=== PATIENT | female | born 1980 | race Caucasian/White ===

== ENCOUNTER 2019-02-17 12:41 | Emergency (ER) | payer OTHER ==
[2019-02-17 12:47] VITALS: BP 119/68
--- NOTE | 2019-02-17 17:35 | ED ---
Throat Pain/Nasal Congestion - HPI Summary HPI Summary: Patient is a 38-year-old female who returns for second time in 2 days with right -sided jaw pain and swelling. She states since yesterday, the pain has decreased the swelling has only slightly decreased. She was placed on clindamycin yesterday. Dental extraction 3 days ago. She was not able to call her dentist as it has been a weekend. She denies any subjective fevers, sweats , chills. She states she feels the pain control and clindamycin have been improving her symptoms. She arrives today to the ED due to some bruising over the right cheek where there is swelling. She was concerned for "bleeding into the cheek." She denies any other symptoms. She is sleeping better. No drainage from the dental extraction. No pain from the dental extraction. - History of Current Complaint Chief Complaint: EDFever Time Seen by Provider: 02/17/19 12:56 Hx Obtained From: Patient Onset/Duration: Sudden Onset Severity: Moderate Associated Signs And Symptoms: Positive: Negative. Negative: Dysphagia, Drooling, Wheezing, Hoarseness, Sinus Discomfort, Nasal Discharge - Epiglottits Risk Factors Epiglottis Risk Factors: Negative - Allergies/Home Medications Allergies/Adverse Reactions: Allergies Allergy/AdvReac Type Severity Reaction Status Date / Time No Known Allergies Allergy Verified 02/16/19 09:29 PMH/Surg Hx/FS Hx/Imm Hx Previously Healthy: Yes - Immunization History Hx Pertussis Vaccination: No Immunizations Up to Date: Yes Infectious Disease History: No Infectious Disease History: Denies: Traveled Outside the [place] in Last 30 Days - Social History Occupation: Employed Full-time Lives: With Family Alcohol Use: Occasionally Hx Substance Use: No Substance Use Type: Reports: None Smoking Status (MU): Former Smoker Review of Systems Constitutional: Negative Negative: Fever, Chills, Fatigue, Skin Diaphoresis Positive: Dental Pain - right sided over dental extraction area. Negative: Sore Throat, Ear Ache Negative: Palpitations, Chest Pain Negative: Shortness Of Breath, Cough Genitourinary: Negative Positive: no symptoms reported, see HPI Negative: Arthralgia, Myalgia Positive: Bruising - R cheek Negative: Headache All Other Systems Reviewed And Are Negative: Yes Physical Exam Triage Information Reviewed: Yes Vital Signs On Initial Exam: Initial Vitals Temp Pulse Resp BP Pulse Ox 100.2 F 99 18 119/68 96 02/17/19 12:43 02/17/19 12:43 02/17/19 12:43 02/17/19 12:43 02/17/19 12:43 Vital Signs Reviewed: Yes Appearance: Positive: Well-Appearing, Well-Nourished Skin: Positive: Warm, Skin Color Reflects Adequate Perfusion, Other - right cheek bruising Eyes: Positive: EOMI, ANA, Conjunctiva Clear Dental: Positive: Other - s/p extraction #31 Neck: Positive: Supple, No Lymphadenopathy Respiratory/Lung Sounds: Positive: Clear to Auscultation, Breath Sounds Present Cardiovascular: Positive: RRR, Pulses are Symmetrical in both Upper and Lower Extremities Musculoskeletal: Positive: Strength/ROM Intact Neurological: Positive: Speech Normal Psychiatric: Positive: Affect/Mood Appropriate Diagnostics - Vital Signs Vital Signs Temp Pulse Resp BP Pulse Ox 02/17/19 13:13 100.2 F 99 18 119/68 96 02/17/19 12:43 100.2 F 99 18 119/68 96 - Laboratory Lab Statement: Any lab studies that have been ordered have been reviewed, and results considered in the medical decision making process. EENT Course/Dx - Course Course Of Treatment: During the course of treatment, the patient is evaluated for some bruising to the right cheek. She was seen here yesterday and placed on clindamycin and pain control for a recent dental extraction. CT obtained at that time which showed no evidence of loculated fluid collection needed for drainage. She was placed on clinic mycin due to swelling of the right cheek, however this may be only related with trauma and not infection. She was noted to have a temperature on arrival at 100.2. She denies any sweats or chills. She states she is feeling improved since yesterday, but returns today due to some bruising to the right cheek. On physical evaluation, there is slightly less swelling then yesterday, no other signs of infection, no erythema or drainage. There is a small amount of bruising to the right cheek, most likely due to the trauma of the dental extraction. No cervical lymphadenopathy. Patient does endorse some right sided neck pain which was not there yesterday, however there is no noted swelling or enlarged nodes to this area. She is able to rotate about the neck and flex and extend without discomfort. She appears well, no sweats and chills. Lungs CTA. RRR. Denies dysphagia or odynophagia. Patient is reassured at this time and will be discharged home with very close follow-up to her dentist. She understands if symptoms continue to worsen or fail to improve she will return to the ED. - Diagnoses Provider Diagnoses: S/P tooth extraction Discharge - Sign-Out/Discharge Documenting (check all that apply): Patient Departure Patient Received Moderate/Deep Sedation with Procedure: No - Discharge Plan Condition: Stable Disposition: HOME Referrals: No Primary Care Phys,NOPCP [Primary Care Provider] - Additional Instructions: Please call dentist tomorrow morning Continue with ice Continue with all your medications as prescribed - Billing Disposition and Condition Condition: STABLE Disposition: Home
== END 2019-02-17 13:13 | disposition home or self-care (01) ==
LOC: ED 12:41
DX: K08.409 Partial loss of teeth, unspecified cause, unspecified class (principal); K08.89 Other specified disorders of teeth and supporting structures; Z87.891 Personal history of nicotine dependence
CPT/HCPCS: 99281